=== PATIENT | female | born 1965 | race Caucasian/White ===

== ENCOUNTER 2018-05-14 22:07 | Emergency (ER) | payer OTHER ==
[~2018-05-14] VITALS: Ht 165.1 cm; Wt 69.4 kg
[2018-05-14 22:22] VITALS: BP 131/79
--- NOTE | 2018-05-14 22:24 | NUR ---
TO LOBBY A/W BED, MOUNA SIERRA NOTED
--- NOTE | 2018-05-14 23:45 | NUR ---
52 YO F CO 10/10 RIGHT GREAT TOE PAIN CAUSED BY POSSIBLE INGROWN TOENAIL. S/S STARTED 3 DAYS AGO. PT STATES PAIN RADIATES ALL THE WAY UP LEG. DENIES FEVER/CHILLS. -- RIGHT GREAT TOE IS BRIGHT RED WITH SWELLING. SKIN IN TACT. NO DRAINAGE AT THIS TIME. CAP REFILL BRISK, >3 SECONDS. PEDAL PULSES IN TACT BILAT. --PMH: HTN PT POSITIONED FOR COMFORT. SIDE RAIL UP X 1. HOB ELEVATED. BED IN LOWEST POSITION. NO APPARENT DISTRESS AT THIS TIME.
[2018-05-15] MEDS ORDERED: KETOROLAC 60 MG/2 ML VIAL IM ONE (00:35)
[2018-05-15 01:32] VITALS: BP 138/93
--- NOTE | 2018-05-15 01:32 | NUR ---
Patient discharged with v/s stable. Written and verbal after care instructions given and explained. Patient alert, oriented and verbalized understanding of instructions. Ambulatory with steady gait. All questions addressed prior to discharge. ID band removed. Patient advised to follow up with PMD. Rx of Bactrim DS, Keflex and Motrin 600mg given. Patient educated on indication of medication including possible reaction and side effects. Opportunity to ask questions provided and answered.
== END 2018-05-15 01:32 | disposition home or self-care (01) ==
LOC: MED 22:07
DX: L03.031 Cellulitis of right toe (principal); L60.0 Ingrowing nail; I10 Essential (primary) hypertension
CPT/HCPCS: 96372; 99283; J1885